=== PATIENT | male | born 1935 | race Caucasian/White ===

== ENCOUNTER → 2016-09-22 | Day surgery (SDC) | payer OTHER, MEDICARE ==
[~2016-09-22] VITALS: Ht 172.7 cm; Wt 71.7 kg
[~2016-09-22] MED LIST: BYSTOLIC5 M1 PO; CARDIZEM CD180 M1 PO; CILOSTAZOL100 M1 PO; OXAZEPAM10 M1 PO; RANITIDINE HCL150 MG PO; SIMVASTATIN20 M2 PO; SYMBICORT 16010.2 GM INH
--- NOTE | 2016-09-22 08:40 | Operative Report ---
Operative/Inv Procedure Report Surgery Date: 09/22/16 Name of Procedure: Cataract extraction lens implantation right eye Pre-Operative Diagnosis: Age-related cataract right eye 20/25 vision 20/100 glare vision Post-Operative Diagnosis: Same Estimated Blood Loss: none Surgeon/Forest Fire Fighter: MIMI ALMENDAREZ,PIYUSH Clemens Anesthesia: local monitored anesthesi Complications: None Operative/Procedure Note Note: The patient was brought to the operating room standard monitoring equipment was attached the patient was prepped and draped in the usual fashion for intraocular surgery. A lid speculum was placed to retract the lids. The case was begun by making 2 partial-thickness corneal relaxing incisions at 180. A temporal incision with a 2.4 mm keratome. The eye was stabilized with a Boyce ring during this incision. 1 mL of non-preserved lidocaine was introduced into the anterior chamber to provide anesthesia. The anterior chamber was then filled and deepened with viscoelastic. A curvilinear capsulorrhexis was achieved using a 30-gauge needle and is a cystotome and capsulorrhexis was finished using a Utrata forceps. A second or paracentesis incision was made temporally with a 1 mm MVR blade. The lens was then hydrodissected with balanced salt solution and found to be rotatable. The lens was emulsified using phacoemulsification and a modified four-quadrant cracking technique. The residual cortical material was removed using automated irrigation and aspiration and as much of the anterior capsular rim was cleaned as well as possible. The posterior capsule was cleaned first with the automated machine on a low setting and then manually with a Gallo squeegee. The capsular bag was deepened with viscoelastic. The lens a Technis 1 21.5 Diopter placed into the bag under direct visualization and rotated so that the haptics were at 12 and 6:00. Viscoelastic was then removed from the eye by flushing it out and then by automated irrigation and aspiration. The eye was pressurized to a normal tone. 1/10 of a cc of vancomycin solution was introduced into the anterior chamber to provide antibiotic prophylaxis. The wounds were sealed by hydrating the stroma adjacent to them and the eye was left at a proper tone after the wounds were checked and found not to be leaking. The lid speculum was removed from the orbit. Antibiotic and steroid drops were placed on the eye and then the eye was shielded. Monitoring equipment was removed from the patient and the patient was removed from the operative suite to the holding area. The patient tolerated the procedure well and will be seen in the office tomorrow.
== END ==
LOC: STS 01:06
DX: H25.9 Unspecified age-related cataract (principal); E78.00 Pure hypercholesterolemia, unspecified; I10 Essential (primary) hypertension; Z86.79 Personal history of other diseases of the circulatory system; Z79.82 Long term (current) use of aspirin
CPT/HCPCS: J2250; V2632

== ENCOUNTER 2018-01-04 21:19 | Emergency (ER) | payer OTHER, MEDICARE ==
[~2018-01-04] VITALS: Ht 172.7 cm; Wt 68.5 kg
[2018-01-04 21:45] LABS: ABSOLUTE BASOPHIL COUNT 0 /CUMM (0.0-0.2); ABSOLUTE EOSINOPHIL COUNT 0.1 /CUMM (0.0-0.7); ABSOLUTE GRANULOCYTE CT 7.3 /CUMM (1.4-6.5); ABSOLUTE LYMPH COUNT 1.8 /CUMM (1.2-3.4); BASOPHIL % 0.2 % (0.0-2.0); EOSINOPHIL % 0.8 % (0-5); GRANULOCYTE % 72.1 % (42.2-75.2); HEMATOCRIT 40.1 % (42-52); MEAN CORPUSCULAR HGB 33.6 PG (27.0-31.0); MEAN CORPUSCULAR HGB CONC 34.5 G/DL (33.0-37.0); MEAN CORPUSCULAR VOLUME 97.7 FL (80.0-94.0); MEAN PLATELET VOLUME 6.4 FL (7.4-10.4); PLATELET COUNT 263 /CUMM (130-400); RBC DISTRIBUTION WIDTH 13.5 % (11.5-14.5); RED BLOOD CELL CT 4.11 /CUMM (4.70-6.10); WHITE BLOOD CELL COUNT 10.2 /CUMM (4.8-10.8)
[2018-01-04 21:53] LABS: PT 11.2 SEC (9.4-12.5); PTT 31 SEC (25-37)
--- NOTE | 2018-01-04 23:11 | ED GENERAL ADULT ---
History of Present Illness General Chief Complaint: General Adult Stated Complaint: SIB DR. JOHNSON, ?INTERNAL BLEEDING Source: patient Exam Limitations: no limitations Vital Signs & Intake/Output Vital Signs & Intake/Output Vital Signs Date Time Temp Pulse Resp B/P B/P Pulse O2 O2 Flow FiO2 Mean Ox Delivery Rate 01/05 0155 97.4 84 18 144/86 95 Room Air 01/05 0151 98 Room Air 01/04 2157 97.6 86 18 148/82 94 Room Air ED Intake and Output 01/05 0000 01/04 1200 Intake Total Output Total Balance Patient 151 lb Weight Weight Estimated Measurement Method Allergies Coded Allergies: amoxicillin (Intermediate, FACIAL SORENESS 01/30/16) clarithromycin (Intermediate, FACIAL SORENESS 01/30/16) Reconcile Medications Budesonide/Formoterol Fumarate (Symbicort 160-4.5 Mcg Inhaler) (Unknown Strength ) HFA.AER.AD (Unknown Dose) INH BID COPD (Reported) Cilostazol 100 MG TABLET 1 TAB PO BID UNKNOWN (Reported) Diltiazem HCl (Cardizem Cd) 180 MG CAP.ER.24H 1 CAP PO DAILY HEART (Reported) Nebivolol HCl (Bystolic) 5 MG TABLET 1 TAB PO DAILY HEART (Reported) Oxazepam 10 MG CAPSULE 1 TAB PO QPM SLEEP (Reported) Ranitidine (Ranitidine HCl) 150 MG TABLET 1 TAB PO BID GI (Reported) Simvastatin (Simvastatin*) 20 MG TABLET 1 TAB PO QPM CHOLESTEROL (Reported) Triage Note: RECEIVED 82 YO MALE SENT BY DR JOHNSON FOR HEMATURIA STARTED 11 AM TODAY. PT REPORTS HE HAS HAD PAIN TO RIGHT CHEST WALL/R UPPER ABDOMIN X ONE WEEK. ACCORDING TO PT, DR JOHNSON SPOKE TO A STAFF MEMBER ABOUT PLAN OF CARE. NO PAIN OR BURNING WITH URINATION. Triage Nurses Notes Reviewed? yes Onset: Abrupt Duration: day(s): (1), better, changing over time, continues in ED Timing: single episode today Injury Environment: home Severity: mild, moderate No Modifying Factors: none HPI: 82-year-old male past medical history of hypertension, hyperlipidemia, COPD presents for evaluation of hematuria. Patient states that he first noticed gross blood in his urine today around 11 AM. He states that his urine was a pink color. He also noticed some clots. He denies difficulty urinating frequency urgency dysuria back pain or fever. He does note some mild right groin pain. He's never had this before. Is not taking any blood thinners. No weight loss abdominal pain and back pain chest pain or shortness of breath. No bleeding from any other areas. No rashes. (Yonatan Baker) Past History Travel History Traveled to [place] past 21 day No Medical History Any Pertinent Medical History? see below for history Neurological: NONE EENT: NONE Cardiovascular: hypertension, hyperlipidemia Respiratory: COPD Gastrointestinal: NONE Hepatic: NONE Renal: NONE Musculoskeletal: NONE Psychiatric: anxiety Endocrine: NONE Cancer(s): TRIPLE A REPAIR 2013 Pneumonia Vaccine: 06/13/07 Influenza Vaccine: 06/06/12 Surgical History Surgical History: non-contributory Psychosocial History Who do you live with Spouse Services at Home NONE What is your primary language Danish Tobacco Use: Current Daily Use Daily Tobacco Use Amount/Type: => 5 Cigarettes daily Family History Hx Contributory? No (Yonatan Baker) Review of Systems Review of Systems Constitutional: Reports: no symptoms. EENTM: Reports: no symptoms. Respiratory: Reports: no symptoms. Cardiovascular: Reports: no symptoms. GI: Reports: see HPI, abdominal pain. Genitourinary: Reports: see HPI, hematuria. Musculoskeletal: Reports: no symptoms. Skin: Reports: no symptoms. Neurological/Psychological: Reports: no symptoms. Hematologic/Endocrine: Reports: no symptoms. Immunologic/Allergic: Reports: no symptoms. All Other Systems: Reviewed and Negative (Yonatan Baker) Physical Exam Physical Exam General Appearance: well developed/nourished, no apparent distress, alert, awake Head: atraumatic, normal appearance Eyes: Bilateral: normal appearance, PERRL, EOMI. Ears, Nose, Throat: normal pharynx, normal ENT inspection, hearing grossly normal Neck: normal inspection, supple, full range of motion Respiratory: normal breath sounds, chest non-tender, no respiratory distress, lungs clear Cardiovascular: regular rate/rhythm, normal peripheral pulses Peripheral Pulses: 2+ radial (R), 2+ radial (L) Gastrointestinal: normal bowel sounds, soft, non-tender, no organomegaly Back: normal inspection, normal range of motion, no vertebral tenderness, NO cva TENDERNESS Extremities: normal inspection, normal range of motion, no edema Neurologic/Psych: no motor/sensory deficits, awake, alert, oriented x 3, normal gait Skin: intact, normal color, warm/dry Core Measures ACS in differential dx? No CVA/TIA Diagnosis: No Sepsis Present: No Sepsis Focused Exam Completed? No (Mian OCAMPO,Yonatan) Progress Differential Diagnoses I considered the following diagnoses in my evaluation of the patient: [Kidney stone, bladder cancer, renal cancer, CAD, BPH, nephrotic syndrome, interstitial nephritis, glomerulonephritis] Plan of Care: Orders Procedure Date/time Status URINALYSIS 01/04 2123 Complete TROPONIN LEVEL 01/04 2123 Complete PARTIAL THROMBOPLASTIN TIME 01/04 2123 Complete PROTHROMBIN TIME 01/04 2123 Complete COMPREHENSIVE METABOLIC PANEL 01/04 2123 Complete CBC WITHOUT DIFFERENTIAL 01/04 2123 Complete TYPE & SCREEN (NOT X-MATCH) 01/04 2123 Complete Laboratory Tests 01/04/182139: Urinalysis LIGHT H, Urine Color PINK H, Urine Clarity HAZY H, Urine pH 7.0, Ur Specific [place] <= 1.005, Urine Protein 30 H, Urine Ketones NEG, Urine Nitrite NEG, Urine Bilirubin NEG, Urine Urobilinogen 0.2, Ur Leukocyte Esterase NEG, Ur Microscopic SEDIMENT EXAMINED, Urine RBC 15-25 H, Urine WBC 1-3 H, Urine Bacteria FEW H, Urine Hemoglobin LARGE H, Urine Glucose NEG 01/04/182134: Anion Gap 12, Estimated GFR > 60, BUN/Creatinine Ratio 14.4, Glucose 87, Calcium 8.8, Total Bilirubin 0.6, AST 22, ALT 18 L, Alkaline Phosphatase 84, Troponin I < 0.01, Total Protein 6.3, Albumin 4.1, Globulin 2.2, Albumin/Globulin Ratio 1.9 , PT 11.2, INR 1.03, APTT 31, CBC w Diff NO MAN DIFF REQ, RBC 4.11 L, MCV 97.7 H, MCH 33.6 H, MCHC 34.5, RDW 13.5, MPV 6.4 L, Gran % 72.1, Lymphocytes % 17.3 L, Monocytes % 9.6 H, Eosinophils % 0.8, Basophils % 0.2, Absolute Granulocytes 7.3 H, Absolute Lymphocytes 1.8, Absolute Monocytes 1.0 H, Absolute Eosinophils 0.1, Absolute Basophils 0 Patient seen and evaluated. He is here with gross hematuria and some mild right flank pain. This started today. No fevers no back pain no difficulty urinating. No blood thinners. No signs are stable he appears chronically well he appears younger than his stated age. Basic blood work and urinalysis obtained. There is evidence of hematuria without signs of infection. Blood work does not show any other acute findings. CT scan of the abdomen and pelvis was obtained which shows lesions of the right kidney and bladder. Patient was seen by his primary care doctor today and referred to a urologist. He has an appointment on . Advised to keep the appointment for and he will likely need a cystoscopy. Discussed return precautions in detail. Case discussed with Dr. Barroso agrees. Diagnostic Imaging: Viewed by Me: CT Scan. Discussed w/RAD: CT Scan. Radiology Impression: PATIENT: GONZALO JARVIS PRESENT AGE: 82 PATIENT ACCOUNT NO: [id number] : 33 LOCATION: [facility] ([facility] ORDERING PHYSICIAN: Yonatan OCAMPO SERVICE DATE: 01/04/18 EXAM TYPE: CAT - CT ABD & PELVIS W/O IV CONTRAS EXAMINATION: CT ABDOMEN AND PELVIS WITHOUT CONTRAST CLINICAL INFORMATION: Hematuria. Right groin pain. COMPARISON: None TECHNIQUE: Multidetector volumetric imaging was performed from the superior aspect of the liver through the pubic symphysis. Sagittal and coronal reformatted images were obtained on the technologist's workstation. DLP: 258.0 mGy-cm FINDINGS: LUNG BASES: Marked emphysematous changes of lung bases. No infiltrate or pleural effusion. There is a small hiatal hernia. LIVER, GALLBLADDER, AND BILIARY TREE: The liver is normal in size, shape, and attenuation. No focal hepatic lesion or biliary ductal dilatation is present. The gallbladder is unremarkable with no evidence of radiopaque gallstones, gallbladder wall thickening, or obvious pericholecystic inflammatory changes. PANCREAS: Unremarkable. SPLEEN: Unremarkable. ADRENAL GLANDS: Unremarkable. KIDNEYS AND URETERS: There is a 5 cm cyst in the upper pole of the right kidney. There is a 1.8 cm cortical cyst at the lower pole right kidney. There is a pedunculated rounded lesion measuring 3.3 x 1.9 x 2.6 cm at the anterior cortex at the mid upper pole of the right kidney. This has a density measurement of 30 Hounsfield units, does not meet criteria for a cyst. Further evaluation with renal ultrasound and a pre and post CT or MR recommended for further evaluation. There is no renal or ureteral calculi. There are vascular calcifications in the left renal tanya. BLADDER: There is a focal lesion involving the anterior left bladder wall measuring 3.3 x 1.6 x 2.7 cm. This is slightly hyperdense. This is suspicious for neoplasm. Direct visualization recommended. GASTROINTESTINAL TRACT: There is marked diverticulosis of the sigmoid colon. No diverticulitis. No acute change of the bowel. No bowel obstruction. No bowel wall thickening or edema. Moderate volume of stool throughout the colon. The appendix is not identified. There is no inflammation of the mesentery. The small bowel loops are unremarkable. ABDOMINAL WALL: No significant hernia is appreciated. LYMPH NODES: Normal. VASCULAR: Status post stenting of abdominal aortic aneurysm. No aneurysmal leak. No retroperitoneal hematoma. PELVIC VISCERA: Prostate measures 5.4 cm transverse. OSSEOUS STRUCTURES: Status post fusion L4-L5. Status post thoracoplasty L4 L2. Compression deformity of L1 with near complete loss of height of the vertebrae. Multilevel degenerative spondylosis of the spine. IMPRESSION: 1. Indeterminate 3.3 cm lesion off the cortex of the right kidney needing further assessment with renal ultrasound and pre and postcontrast CT or MRI. 2. Bladder lesion. Direct visualization recommended for further assessment. 3. Enlarged prostate. 4. Diverticulosis of colon. No acute change of the bowel. DICTATED BY: Choco Ramirez MD DATE/TIME DICTATED:01/04/182352 [facility] LAB TECHNICIAN :ROMEO DATE/TIME TRANSCRIBED:01/04/182352 CONFIDENTIAL, DO NOT COPY WITHOUT APPROPRIATE AUTHORIZATION. <Electronically signed in Other Vendor System> SIGNED BY: Choco Ramirez MD 01/05/18 0010 Initial ED EKG: none (Yonatan aBker) Departure Departure Disposition: HOME OR SELF CARE Condition: Stable Clinical Impression Primary Impression: Hematuria Qualifiers: Hematuria type: unspecified type Qualified Code: R31.9 - Hematuria, unspecified Referrals: Yifan ALMENDAREZ,Nissa Johnson MD,Yuri Deng (PCP/Family) Additional Instructions: Follow-up with Dr. Saha on as scheduled. Monitor symptoms return with any concerns. Departure Forms: Customer Survey General Discharge Information (Yonatan Baker) PA/MACHINE TOOL DESIGNER Co-Sign Statement Statement: ED Attending supervision documentation- [X] I saw and evaluated the patient. I have also reviewed all the pertinent lab results and diagnostic results. I agree with the findings and the plan of care as documented in the PA's/MACHINE TOOL DESIGNER's documentation. [X] I have reviewed the ED Record and agree with the PA's/MACHINE TOOL DESIGNER's documentation. [] Additions or exceptions (if any) to the PAs/MACHINE TOOL DESIGNER's note and plan are summarized below: [] (Chio ALMENDAREZ,Chirag Hackett) Critical Care Note Critical Care Note Critical Care Time: non-applicable (Yonatan Baker)
--- NOTE | 2018-01-05 00:10 | CT SCAN REPORT ---
EXAMINATION: CT ABDOMEN AND PELVIS WITHOUT CONTRAST CLINICAL INFORMATION: Hematuria. Right groin pain. COMPARISON: None TECHNIQUE: Multidetector volumetric imaging was performed from the superior aspect of the liver through the pubic symphysis. Sagittal and coronal reformatted images were obtained on the technologist's workstation. DLP: 258.0 mGy-cm FINDINGS: LUNG BASES: Marked emphysematous changes of lung bases. No infiltrate or pleural effusion. There is a small hiatal hernia. LIVER, GALLBLADDER, AND BILIARY TREE: The liver is normal in size, shape, and attenuation. No focal hepatic lesion or biliary ductal dilatation is present. The gallbladder is unremarkable with no evidence of radiopaque gallstones, gallbladder wall thickening, or obvious pericholecystic inflammatory changes. PANCREAS: Unremarkable. SPLEEN: Unremarkable. ADRENAL GLANDS: Unremarkable. KIDNEYS AND URETERS: There is a 5 cm cyst in the upper pole of the right kidney. There is a 1.8 cm cortical cyst at the lower pole right kidney. There is a pedunculated rounded lesion measuring 3.3 x 1.9 x 2.6 cm at the anterior cortex at the mid upper pole of the right kidney. This has a density measurement of 30 Hounsfield units, does not meet criteria for a cyst. Further evaluation with renal ultrasound and a pre and post CT or MR recommended for further evaluation. There is no renal or ureteral calculi. There are vascular calcifications in the left renal tanya. BLADDER: There is a focal lesion involving the anterior left bladder wall measuring 3.3 x 1.6 x 2.7 cm. This is slightly hyperdense. This is suspicious for neoplasm. Direct visualization recommended. GASTROINTESTINAL TRACT: There is marked diverticulosis of the sigmoid colon. No diverticulitis. No acute change of the bowel. No bowel obstruction. No bowel wall thickening or edema. Moderate volume of stool throughout the colon. The appendix is not identified. There is no inflammation of the mesentery. The small bowel loops are unremarkable. ABDOMINAL WALL: No significant hernia is appreciated. LYMPH NODES: Normal. VASCULAR: Status post stenting of abdominal aortic aneurysm. No aneurysmal leak. No retroperitoneal hematoma. PELVIC VISCERA: Prostate measures 5.4 cm transverse. OSSEOUS STRUCTURES: Status post fusion L4-L5. Status post thoracoplasty L4 L2. Compression deformity of L1 with near complete loss of height of the vertebrae. Multilevel degenerative spondylosis of the spine. IMPRESSION: 1. Indeterminate 3.3 cm lesion off the cortex of the right kidney needing further assessment with renal ultrasound and pre and postcontrast CT or MRI. 2. Bladder lesion. Direct visualization recommended for further assessment. 3. Enlarged prostate. 4. Diverticulosis of colon. No acute change of the bowel.
[2018-01-05 01:55] VITALS: BP 144/86
== END 2018-01-05 01:56 ==
LOC: ERH 21:19
PROVIDERS: Emergency Medicine
DX: R31.9 Hematuria, unspecified (principal)
CPT/HCPCS: 74176; 81001; 86920; 86922

== ENCOUNTER 2018-01-14 01:06 | Observation (INO) | payer OTHER, MEDICARE ==
[~2018-01-14] VITALS: Ht 172.7 cm; Wt 64.9 kg
--- NOTE | 2018-01-14 09:30 | Operative Report ---
Operative/Inv Procedure Report Surgery Date: 01/14/18 Name of Procedure: TURBT Pre-Operative Diagnosis: bladder tumors, multiple Post-Operative Diagnosis: same Estimated Blood Loss: less than 50ml Surgeon/Health Safety Coordinator: Nissa Saha MD Anesthesia: laryngeal mask airway Drains: 18Fr 3 way willis Specimens: bladder tumor chips Complications: none Condition: stable Operative Indication: bladder tumors with gross hematuria Operative/Procedure Note Note: This is an 82-year-old male with a history of gross hematuria and decades of smoking. He was seen in the office for evaluation and a cystoscopy was performed were multiple bladder tumors were found at the bladder dome in the left lateral wall. He was given the options and risks of transurethral resection of bladder tumor. The rationale for the surgery was explained and all questions were answered. Consent was signed in the holding area. Discussion was had with his daughter as well the day of surgery. Patient was identified in the holding area and brought to the operating placed on the operating table in the sitting supine position. Timeout was performed. IV antibiotics were infused. LMA anesthesia was begun. He was placed in the dorsolithotomy position and prepped and draped in the standard sterile fashion. A cystoscopy was performed and the bladder was globally inspected. He had trabeculation grade 2 and diverticula and multiple bladder tumors at the bladder dome and left lateral wall. They were flat and sessile and encompassed of a large area proximal me 7 cm. Ureteral orifices were easily identified. They were not involved with the tumor. The resectoscope was then placed or attempted to but the meatus was too tight. It was dilated up using sounds up to 30 Croatian. The resectoscope was then placed and the bladder was inspected and the resection was started from the lateral wall to the dome. The director medical surgical needed to press on the patient's suprapubic region to help with the resection. Ellik evacuation was performed periodically. Point coagulation was performed as needed for bleeders. Pictures were taken prior to starting the resection. The entirety of the tumor was resected and was evaluated periodically. The ureteral orifices were intact and not injured at the end of the case. Once all of the tumor was resected and the chips were removed and complete hemostasis was achieved a 18 Croatian three-way Willis catheter was placed. Patient tolerated procedure well. Vicenta was placed at the penile tip at the meatus due to bleeding. This helped with hemostasis nicely. Patient tolerated the procedure well and was transferred to the recovery room stable condition. Findings: Multiple bladder tumors at the bladder dome in the left lateral wall which did not encompassed the ureteral orifices. They were flat and sessile in nature and encompassed approximately 7 cm of area.
--- NOTE | 2018-01-14 14:10 | Admission Core Measures ---
Acute Coronary Syndrome (CM) ACS Core Measures Acute Coronary Syndrome Diagnosis No Congestive Heart Failure (NEW) CHF Core Measures Congestive Heart Failure Diagnosis No Cerebrovascular Accident (NEW) CVA Core Measures CVA/TIA Diagnosis No Venous Thromboembolism VTE Core Fernanda (View Protocol) VTE Risk Factors Surgery No Mechanical VTE Prophylaxis d/t N/A MechProphylax Ordered No VTE Pharm Prophylaxis d/t NA PharmProphylax ordered Problem List As ranked by this Provider includes Assessment & Plan 1. Bladder tumor HOME MEDS Home Med List Budesonide/Formoterol Fumarate (Symbicort 160-4.5 Mcg Inhaler) (Unknown Strength ) HFA.AER.AD (Unknown Dose) INH BID COPD (Reported) Cilostazol 100 MG TABLET 1 TAB PO BID UNKNOWN (Reported) Diltiazem HCl (Cardizem Cd) 180 MG CAP.ER.24H 1 CAP PO DAILY HEART (Reported) Oxazepam 10 MG CAPSULE 1 TAB PO QPM SLEEP (Reported) Ranitidine (Ranitidine HCl) 150 MG TABLET 1 TAB PO BID GI (Reported) Simvastatin (Simvastatin*) 20 MG TABLET 1 TAB PO QPM CHOLESTEROL (Reported)
[2018-01-14] MEDS ORDERED: PYRIDIUM100 M1 PO (16:13)
--- NOTE | 2018-01-14 16:22 | Patient Discharge Instructions ---
Discharge Instructions General Discharge Information You were seen/treated for: Bladder tumor You had these procedures: Trans urethral resection of bladder tumor Watch for these problems: Increasing pain, increasing blood in urine Inability to urinate Fever >101.5 Call Surgeon to remove: Other (Marx catheter) Special Instructions: Please refer to hand written instructions provided by Dr. Saha Diet Continue normal diet: Yes Recommended Diet: Heart Healthy Activity Full Activity/No Limits: No Activity Self Limited: Yes Pounds, do NOT lift more than: 10 Acute Coronary Syndrome Inclusion Criteria At DC or during hospital stay patient has or had the following: ACS DIAGNOSIS No Discharge Core Measures Meds if any: Prescribed or Continued at Discharge Meds if any: NOT Prescribed or Continued at Discharge Congestive Heart Failure Inclusion Criteria At DC or during hospital stay patient has or had the following: CHF DIAGNOSIS No Discharge Core Measures Meds if any: Prescribed or Continued at Discharge Meds if any: NOT Prescribed or Continued at Discharge Cerebrovascular accident Inclusion Criteria At DC or during hospital stay patient has or had the following: CVA/TIA Diagnosis No Discharge Core Measures Meds if any: Prescribed or Continued at Discharge Meds if any: NOT Prescribed or Continued at Discharge Venous thromboembolism Inclusion Criteria VTE Diagnosis No VTE Type NONE VTE Confirmed by (Test) NONE Discharge Core Measures - Per Current guidelines, there needs to be overlap - treatment for the first 5 days of Warfarin therapy. - If discharged on Warfarin prior to 5 days of - overlap therapy, the patient will need to be - assessed for post discharge needs including - *Post discharge parental anticoagulation - *Warfarin and/or parental anticoagulation education - *Follow up date to check INR post discharge At least 5 days overlap therapy as Inpatient No Meds if any: Prescribed or Continued at Discharge Note: Overlap Therapy is Warfarin and Anticoagulant Meds if any: NOT Prescribed or Continued at Discharge
--- NOTE | 2018-01-14 17:56 | PN- Urology ---
Subjective Subjective: Patient states that he has mild pelvic pain and some acid reflux. Denies chest pain, shortness of breath and difficulty breathing. Had some nausea in the early postop period, small amount of emesis, has since resolved. He has passed a small amount of flatus. He has yet to ambulate. He has willis. Objective Vital Signs and I&Os HR: 100, RR 16, o2 94 on 2L nasal cannula, T 98.5, BP 140/72 Physical Exam: General: Alert and oriented x3, no acute distress Cardiac: RRR, s1s2 Pulm: CTA bilaterally Abd: Softly distended, non-tender Extremities: Moves all extremities, distal sensation intact. Skin warm and well perfused. Pulses palpable. Bilateral calves soft/non-tender Surgical site: Some bleeding noted around meatus, hematuria, urine blood tinged. Assessment/Plan Assessment/Plan This is an 82 year old male, POD 0, s/p TURBT. PMH significant for htn, hld, copd, anxiety, gerd -Continue home meds -IV hydration until tolerating po -No CBI per Dr. Saha -Francisco J for 10 days -Ancef prophylaxis -ALPS for dvt ppx -Percocet for pain Anticipate dc to home tomorrow Follow up with Dr Saha in one week Core Measures Venous Thromboembolism VTE Risk Factors Surgery No Mechanical VTE Prophylaxis d/t N/A MechProphylax Ordered No VTE Pharm Prophylaxis d/t NA PharmProphylax ordered
[2018-01-14 18:00] VITALS: BP 142/60
[2018-01-14 20:00] VITALS: BP 130/80
[2018-01-14 22:10] VITALS: BP 110/60
[2018-01-15 02:00] VITALS: BP 98/52
[2018-01-15 05:49] VITALS: BP 100/52
--- NOTE | 2018-01-15 08:25 | PN- Urology ---
Subjective Subjective: Patient reports nausea/vomiting resolved last night. Tolerated cereal this morning, reports that he just ordered pancakes. Reports passing flatus. Denies any fever or chills. Suprapubic pain controlled with Percocet. Offers no other complaints. Objective Vital Signs and I&Os Vital Signs Date Time Temp Pulse Resp B/P B/P Pulse O2 O2 Flow FiO2 Mean Ox Delivery Rate 01/15 0549 98.5 74 20 100/52 96 Nasal 2.0L Cannula 01/15 0200 98.6 79 18 98/52 94 Nasal Cannula 01/15 0000 94 Nasal 2.0L Cannula 01/14 2210 98.1 84 20 110/60 94 Nasal Cannula 01/14 2000 98.1 95 20 130/80 93 Nasal Cannula 01/14 1800 98.3 95 20 142/60 95 Nasal Cannula 01/14 1600 94 Nasal 2.0L Cannula Intake & Output 01/15 1600 01/15 0800 01/15 0000 01/14 1600 01/14 0800 01/14 0000 Intake Total 840 345 Output Total 550 1900 Balance 290 -1555 Intake, IV 600 225 Intake, Oral 240 120 Output, Urine 550 1900 Patient 143 lb Weight Physical Exam: Gen - nad Cardia - S1S2, rrr Lungs - CTAB Abd - Soft, mildly distended, non-tender - willis in place with hematuria in bag and clear yellow urine in the the catheter Ext - no edea or calf tenderness Current Medications: Current Medications Sig/Fidel Start time Last Medication Dose Route Stop Time Status Admin Acetaminophen 650 MG Q4P PRN 01/14 1615 AC PO Atorvastatin Calcium 20 MG 1700 01/14 1700 AC 01/14 PO 1742 Budesonide/ 2 PUF BID 01/14 2100 AC 01/14 Formoterol Fumarate INH 2135 Calcium Carbonate 500 MG ONCE ONE 01/14 1700 DC 01/14 PO 01/14 1701 1743 Cefazolin Sodium 2 GM IQ8 01/14 1600 DC 01/15 N/A 1 UNIT IV 01/15 0029 0039 Cefazolin Sodium 2,000 MG ONCE 01/14 0000 DC IV 01/14 2359 Cilostazol 100 MG BID 01/14 2100 AC 01/14 PO 2135 Dextrose/Sodium 1,000 ML .[id number] 01/14 1615 AC 01/15 Chloride IV 0715 Diltiazem HCl 180 MG BID 01/14 2100 AC 01/14 PO 2135 Docusate Sodium 100 MG DAILY NEEDED PRN 01/14 1615 AC PO Famotidine 20 MG BID 01/14 2100 AC 01/14 PO 2135 Heparin Sodium 5,000 UNIT Q8 01/14 1400 DC (Porcine) SC Hydromorphone HCl 2 MG .STK-MED ONE 01/14 0927 DC IM 01/14 0928 Hydromorphone HCl 2 MG .STK-MED ONE 01/14 0914 DC IM 01/14 0915 Ondansetron HCl 4 MG Q6P PRN 01/14 1615 AC IV Oxycodone/ 1 TAB Q4P PRN 01/14 1800 AC 01/15 Acetaminophen PO 0041 Oxycodone/ 0 .STK-MED ONE 01/14 1524 DC Acetaminophen PO Pantoprazole Sodium 40 MG ONCE ONE 01/14 1745 DC 01/14 IV 01/14 1746 1920 Phenazopyridine HCl 100 MG DAILY 01/15 0900 AC PO Polyethylene Glycol 17 GM DAILY NEEDED PRN 01/14 1615 AC PO Simethicone 80 MG Q6P PRN 01/14 1700 AC PO Results Last 48 Hours of Labs: Laboratory Tests 01/15 0720 Chemistry Sodium Pending Potassium Pending Chloride Pending Carbon Dioxide Pending Anion Gap Pending BUN Pending Creatinine Pending BUN/Creatinine Ratio Pending Hematology CBC w Diff Pending WBC Pending RBC Pending Hgb Pending Hct Pending MCV Pending MCH Pending MCHC Pending RDW Pending Plt Count Pending MPV Pending Assessment/Plan Assessment/Plan 82 M POD 1 s/p TURBT due to multiple bladder tumors, postop nausea/vomiting/ fever resolved. Cont cardiac diet D/C IVF Pain regimen prn Pyridium daily No CBI per Dr. Saha Keep willis in for 10 days total Home meds on board DVT ppx - alps Percocet rx sent to his pharmacy Cont observation in anticipation dc today pending labs F/u Dr Saha in one week Core Measures Venous Thromboembolism VTE Risk Factors Surgery No Mechanical VTE Prophylaxis d/t N/A MechProphylax Ordered No VTE Pharm Prophylaxis d/t NA PharmProphylax ordered
[2018-01-15 08:34] LABS: ABSOLUTE BASOPHIL COUNT 0 /CUMM (0.0-0.2); ABSOLUTE EOSINOPHIL COUNT 0 /CUMM (0.0-0.7); ABSOLUTE GRANULOCYTE CT 12.1 /CUMM (1.4-6.5); ABSOLUTE LYMPH COUNT 0.8 /CUMM (1.2-3.4); ABSOLUTE MONOCYTE COUNT 0.8 /CUMM (0.10-0.60); BASOPHIL % 0 % (0.0-2.0); EOSINOPHIL % 0 % (0-5); HEMATOCRIT 33.3 % (42-52); MEAN CORPUSCULAR HGB CONC 34.2 G/DL (33.0-37.0); MEAN CORPUSCULAR VOLUME 99.4 FL (80.0-94.0); MEAN PLATELET VOLUME 7.2 FL (7.4-10.4); PLATELET COUNT 202 /CUMM (130-400); RBC DISTRIBUTION WIDTH 13.6 % (11.5-14.5); RED BLOOD CELL CT 3.34 /CUMM (4.70-6.10); WHITE BLOOD CELL COUNT 13.7 /CUMM (4.8-10.8)
[2018-01-15 09:28] VITALS: BP 124/42
[2018-01-15] MEDS ORDERED: PERCOCET 5-3251 EACH PO (10:02)
[2018-01-15 10:18] LABS: GRANULOCYTE % 88.3 % (42.2-75.2)
[2018-01-15] MEDS ORDERED: PYRIDIUM100 M1 PO (11:07)
== END 2018-01-15 12:23 | disposition home health service (06) ==
LOC: STS 01:06 → PACUH 13:48 → ENRESERV 14:20 → 2NA 15:24 → ENPENDDIS 01-15 10:39 → ENTRNSPT 01-15 11:49 → EDTRNSPT 01-15 12:14 → EDTRNSPTSTS 01-15 12:14 → 2NA 01-15 12:23 → CMPTRNSPT 01-15 12:24
PROVIDERS: Nurse Practitioner
DX: C67.1 Malignant neoplasm of dome of bladder (principal); J44.9 Chronic obstructive pulmonary disease, unspecified; F41.9 Anxiety disorder, unspecified; R31.9 Hematuria, unspecified; Z87.891 Personal history of nicotine dependence; I10 Essential (primary) hypertension; E78.5 Hyperlipidemia, unspecified; K21.9 Gastro-esophageal reflux disease without esophagitis; R50.82 Postprocedural fever; N99.89 Other postprocedural complications and disorders of genitourinary system; R11.2 Nausea with vomiting, unspecified; Y84.8 Other medical procedures as the cause of abnormal reaction of the patient, or of later complication, without mention of misadventure at the time of the procedure
CPT/HCPCS: 1328; 1530; 6030; 36592; 82436; 93005; 93010; 96374; 96375; G0378; J0131; J0690; J1644; J2405; J3490; J7042

== ENCOUNTER 2018-02-06 08:14 | Emergency (ER) | payer OTHER, MEDICARE ==
[~2018-02-06] VITALS: Ht 172.7 cm; Wt 64.4 kg
[~2018-02-06 08:14] MED LIST changes: +PERCOCET 5-3251 EACH PO; +PYRIDIUM100 M1 PO
--- NOTE | 2018-02-06 09:29 | ED GI/GU/ABDOMINAL COMPLAINT ---
History of Present Illness General Chief Complaint: General Adult Stated Complaint: HAVING TROUBLE PASSING BOWELS Source: patient Exam Limitations: no limitations Vital Signs & Intake/Output Vital Signs & Intake/Output Vital Signs Date Time Temp Pulse Resp B/P B/P Pulse O2 O2 Flow FiO2 Mean Ox Delivery Rate 02/06 0818 98.0 94 20 119/77 94 Room Air Allergies Coded Allergies: amoxicillin (Intermediate, FACIAL SORENESS 01/30/16) clarithromycin (Intermediate, FACIAL SORENESS 01/30/16) Reconcile Medications Budesonide/Formoterol Fumarate (Symbicort 160-4.5 Mcg Inhaler) (Unknown Strength ) HFA.AER.AD (Unknown Dose) INH BID COPD (Reported) Cilostazol 100 MG TABLET 1 TAB PO BID UNKNOWN (Reported) Diltiazem HCl (Cardizem Cd) 180 MG CAP.ER.24H 1 CAP PO DAILY HEART (Reported) Oxazepam 10 MG CAPSULE 1 TAB PO QPM SLEEP (Reported) Oxycodone HCl/Acetaminophen (Percocet 5-325 MG Tablet) 5 MG-325 MG TABLET 1-2 TAB PO Q4-6 PRN PAIN Phenazopyridine HCl (Pyridium) 100 MG TABLET 1 TAB PO DAILY POSTOP . Ranitidine (Ranitidine HCl) 150 MG TABLET 1 TAB PO BID GI (Reported) Simvastatin (Simvastatin*) 20 MG TABLET 1 TAB PO QPM CHOLESTEROL (Reported) Triage Note: PT TO ED C/O CONSTIPATION X 1 WEEK. HAS TRIED FLEETS ENEMA AND DULCOLAX WITH NO RELIEF. "I NEED TO BE CLEANED OUT". Triage Nurses Notes Reviewed? yes Onset: Abrupt Duration: week(s): Timing: recent history HPI: 82-year-old male comes into the emergency room with complaints of constipation has been going on for the past. Patient had surgery done at the end of December for bladder cancer and had a Marx catheter placed. The Marx catheter was removed on January 24 was started on Flomax. Since then he's had difficulty with bowel movements. He has taken over to medications including Dulcolax, Fleet enemas. He reports that he then took the glove been disimpacted himself but is still having difficulty going to the bathroom. Denies any fever chills vomiting. He denies any abdominal pain but reports he feels that he needs to go to the bathroom. Denies any other associated symptoms. He reports that he needs to be here soon just before coming over the house. (Shaheed Saucedo) Past History Travel History Traveled to [place] past 21 day No Medical History Any Pertinent Medical History? see below for history Neurological: NONE EENT: NONE Cardiovascular: hypertension, hyperlipidemia, TRIPLE A REPAIR 2012 Respiratory: COPD Gastrointestinal: NONE Hepatic: NONE Renal: NONE Musculoskeletal: NONE Psychiatric: anxiety Endocrine: NONE Blood Disorders: NONE Cancer(s): BLADDER MASS History of MRSA: No History of VRE: No History of CDIFF: No Surgical History Surgical History: non-contributory Psychosocial History Who do you live with Spouse Services at Home NONE What is your primary language Honduran Tobacco Use: Current Daily Use Daily Tobacco Use Amount/Type: => 5 Cigarettes daily ETOH Use: denies use Illicit Drug Use: denies illicit drug use Family History Hx Contributory? No (Shaheed Saucedo) Review of Systems Review of Systems Constitutional: Reports: see HPI. EENTM: Reports: no symptoms. Respiratory: Reports: no symptoms. Cardiovascular: Reports: no symptoms. GI: Reports: see HPI. Genitourinary: Reports: no symptoms. Musculoskeletal: Reports: no symptoms. Skin: Reports: no symptoms. Neurological/Psychological: Reports: no symptoms. Hematologic/Endocrine: Reports: no symptoms. Immunologic/Allergic: Reports: no symptoms. All Other Systems: Reviewed and Negative (Shaheed Saucedo) Physical Exam Physical Exam General Appearance: well developed/nourished, no apparent distress, alert, awake Head: atraumatic Eyes: Bilateral: normal appearance. Ears, Nose, Throat, Mouth: moist mucous membrane Neck: normal inspection Respiratory: no respiratory distress Gastrointestinal: soft Rectal: no stool in rectal vault Back: normal inspection Extremities: normal range of motion Neurologic/Psych: awake, alert, oriented x 3 Core Measures ACS in differential dx? No Sepsis Present: No Sepsis Focused Exam Completed? No (Shaheed Saucedo) Progress Differential Diagnosis: bowel obstruction, diverticulitis, gastritis, SBO, fecal impaction Plan of Care: Orders Procedure Date/time Status Enema 02/07 928 Active Initial ED EKG: none (Shaheed Saucedo) Departure Departure Disposition: HOME OR SELF CARE Condition: Stable Clinical Impression Primary Impression: Constipation Referrals: Katie ALMENDAREZ,Yuri Deng (PCP/Family) Additional Instructions: Follow-up with primary care doctor. Drink plenty of fluids. Return if any other concerns. Please go over all results of today's visit with your primary care doctor. Contact your primary care doctor to let them know you were here in the emergency room. There may be nonspecific findings which may not be related to your visit today here in the emergency room but may require further evaluation and chronic monitoring by your primary care doctor. If you had a laceration today the chance of foreign body always remains. You should follow-up with your primary care doctor for recheck in 3-5 days for a wound check. If you had an x-ray done there is a chance that a fracture could have been missed on initial read and you should follow-up with your primary care doctor for repeat x-rays if symptoms persist. If your blood pressure was elevated here in the emergency room please have rechecked by [facility] primary care doctor within the next 48. If you were prescribed a narcotic here in the emergency room or any type of controlled substances you're not allowed to drive while taking this medication or operate any type of heavy machinery. Narcotics can make you feel lightheaded dizziness nausea and can cause constipation. You may need to belt picker a stool softener. Thank you for choosing [facility] emergency room. Please return to the emergency room immediately if you have any other concerns worsening of symptoms. Departure Forms: Customer Survey General Discharge Information Comments 02/06/2018 10:23:38 AM Patient had a couple bowel movements here in the emergency room. He feels better. He wants to leave. He has no complaints of abdominal pain. He was very anxious to get out of here. He does not appear to be any type of distress. I explained to the patient we did not do blood work or any other type of workup. And that if he gets any pain fever vomiting or any other worsening of symptoms that he should return to the emergency room immediately. (Shaheed Saucedo) PA/ENTRY LEVEL ADMINISTRATIVE ASSISTANT Co-Sign Statement Statement: ED Attending supervision documentation- [x] I saw and evaluated the patient. I have also reviewed all the pertinent lab results and diagnostic results. I agree with the findings and the plan of care as documented in the PA's/ENTRY LEVEL ADMINISTRATIVE ASSISTANT's documentation. Patient presents for evaluation of trouble moving his bowels. Physical examination after a bowel movement in the emergency department is unremarkable. Patient appears comfortable and ready to go home. [] I have reviewed the ED Record and agree with the PA's/ENTRY LEVEL ADMINISTRATIVE ASSISTANT's documentation. [] Additions or exceptions (if any) to the PAs/ENTRY LEVEL ADMINISTRATIVE ASSISTANT's note and plan are summarized below: [] (Alessandra ALMENDAREZ,Josiah Rodriguez)
[2018-02-06 10:29] VITALS: BP 121/79
== END 2018-02-06 10:30 ==
LOC: ERH 08:14
DX: K59.00 Constipation, unspecified (principal)